=== PATIENT | female | born 1975 | race Two or more races ===

== ENCOUNTER 2022-05-10 16:24 | Outpatient (CLI) | payer SELFPAY ==
[2022-05-10 17:14] LABS: Basophils Absolute Auto 0.05 K/uL (0.00-0.30); Basophils Percent Auto 0.5 % (0.0-3.0); Eosinophils Absolute Auto 0.29 K/uL (0.00-0.50); Eosinophils Percent Auto 3.1 % (0.0-7.0); Hematocrit 41.2 % (33.0-51.0); Hemoglobin* 13.9 gm/dL (12.0-16.0); Immature Granulocytes Abs Auto 0.02 K/uL (0.00-0.30); Immature Granulocytes Pct Auto 0.2 %; Lymphocytes Absolute Auto 3.06 K/uL (0.90-2.90); Mean Corpuscular HGB Conc 34 gm/dL (32-36); Mean Corpuscular Hemoglobin 30 pg (26-34); Mean Corpuscular Volume 89 fL (80-100); Monocytes Percent Auto 7.2 % (0.0-11.0); Neutrophils Absolute Auto 5.19 K/uL (1.7-7.0); Platelet Count* 310 K/uL (140-440); RDW Coefficient of Variation % 12.3 % (11.5-15.5); Red Blood Count 4.65 m/uL (4.00-5.20); White Blood Count* 9.28 K/uL (4.50-11.00)
[2022-05-10 17:15] LABS: Slide Review Reflex No
--- NOTE | 2022-05-10 17:15 | CRLHL7_ITS ---
For Patients: As a result of the Century Cures Act, medical imaging exams and procedure reports are released immediately into your electronic medical record. You may view this report before your referring provider. If you have questions, please contact your health care provider. BILATERAL SCREENING MAMMOGRAM WITH COMPUTER-AIDED DETECTION AND TOMOSYNTHESIS TECHNIQUE: CC and MLO views were obtained. These mammographic images have been obtained using full-field digital technique. These mammographic images were interpreted with the benefit of computer-aided detection. Breast Tomosynthesis was used in this interpretation. COMPARISON FILM: 10/30/18, 11/25/16, 09/24/10. FINDINGS: There are scattered areas of fibroglandular density IMPRESSION: There is no radiographic evidence for malignancy. ASSESSMENT: BI-RADS Category 1: Negative RECOMMENDATION: Routine screening mammogram in 1 year. A lay language report of this examination will be provided to the patient. Chuck Negro M.D. Diagnostic/Nuclear Medicine Radiologist [email or web address] PABLO/Dictated by: Chuck Negro MD @ 05/11/2022 8:49:00 AM (Electronically Signed)
[2022-05-10 17:58] LABS: Free T4 Free Thyroxine* 0.88 ng/dL (0.70-1.85)
== END 2022-05-10 16:25 | disposition home or self-care (01) ==
PROVIDERS: PCP Nurse Practitioner Family; Visit Provider Nurse Practitioner Family
DX: Z12.31 Encounter for screening mammogram for malignant neoplasm of breast (principal)
CPT/HCPCS: 36415; 77063; 77067; 84439; 84443; 85025

== ENCOUNTER 2022-10-28 16:24 | Emergency (ER) | payer SELFPAY ==
[2022-10-28 16:39] VITALS: BP 145/77; PULSE 71; RESP 20; TEMP 36.3; O2SAT 97; BMI 30.8
--- NOTE | 2022-10-28 17:36 | CRLHL7_ITS ---
For Patients: As a result of the Century Cures Act, medical imaging exams and procedure reports are released immediately into your electronic medical record. You may view this report before your referring provider. If you have questions, please contact your health care provider. INDICATION: Right upper quadrant abdomen pain. TECHNIQUE: Ultrasound abdomen limited. Sonographic images of the right upper quadrant were obtained using heart-scale and color Doppler images. COMPARISON: None. FINDINGS: Liver: Normal in size and echotexture. No intrahepatic biliary dilatation. Gallbladder: No stones or sludge. Normal wall thickness. No pericholecystic fluid. Common bile duct: 3 mm. Pancreas: Pancreas is relatively obscured by bowel gas. Right kidney: Normal in size. Normal echotexture and cortex. No shadowing stones, or hydronephrosis. Vasculature: Proximal abdominal aorta and IVC are unremarkable. IMPRESSION: Unremarkable right upper quadrant ultrasound. Dictated by Parrish Mendoza MD @ 10/28/2022 7:21:06 PM (Electronically Signed)
--- NOTE | 2022-10-28 17:38 | ED_ITS ---
HPI - Abdominal Pain General Chief Complaint: Abdominal Pain Stated Complaint: Nausea, vomiting, cold feeling hands Time Seen by Provider: 10/28/22 17:17 History of Present Illness HPI narrative: This 46-year-old female is a [place]-speaking woman who requires use of epilepsy physician. She comes in reporting abdominal pain over the past few weeks but worse over recent few days. She has right upper quadrant and upper abdomen pain. She describes also some nausea and vomiting. Her pain is worsened when taking food. She does not report any fevers. Related Data Home Medications Medication Instructions Recorded Confirmed cetirizine 10 mg tablet 10 mg PO 01/10/22 01/10/22 citalopram 20 mg tablet 20 mg PO 01/10/22 01/10/22 docusate sodium 100 mg capsule ea PO 01/10/22 01/10/22 famotidine 20 mg tablet 20 mg PO 01/10/22 01/10/22 hydroxyzine HCl 25 mg tablet 25 mg PO 01/10/22 01/10/22 diphenhydramine HCl 25 mg capsule 25 mg PO QPM PRN 06/30/22 06/30/22 (Allergy Relief (diphenhydramine)) escitalopram oxalate 10 mg tablet 10 mg PO DAILY 06/30/22 06/30/22 glycerin 0.25 % eye drops (Clear drp ophthalmic (eye) 06/30/22 06/30/22 Eyes Dry Itchy Relief) olopatadine 0.2 % eye drops 1 drp ophthalmic (eye) QAM 06/30/22 06/30/22 (Pataday Once Daily Relief) Previous Rx's Medication Instructions Recorded ketorolac 10 mg tablet 10 mg PO Q8H 5 days #15 tabs 10/28/22 ondansetron HCl 4 mg tablet 4 mg PO Q6H #20 tabs 10/28/22 Allergies Allergy/AdvReac Type Severity Reaction Status Date / Time No Known Drug Allergies Allergy Verified 10/04/22 15:15 Review of Systems Status of ROS Reports: 10 or more systems reviewed and unremarkable except as noted in History and below Narrative Constitutional: No fevers, no weight gain or loss. Eyes: No discharge. No vision changes. HENT: No congestion, no sore throat, no ear pain. Cardiovascular: No chest pain, no palpitations. Respiratory: No shortness of breath, no wheezes, no cough. Gastrointestinal: Right upper quadrant abdominal pain with nausea and some vomiting. No diarrhea. Genitourinary: No dysuria, no hematuria. Musculoskeletal: Normal range of motion. Skin: No rashes, no pruritis. Neurological: No dizziness, weakness, sensory change, speech change. Endo/Heme/Allergies: No bruising or bleeding. No polydipsia. Pysch: no suicidality, no anxiety, no insomnia. All other systems reviewed and are negative. PFSH PFSH Surgical History (System 10/04/22 @ 15:15 by Koki Mcelroy) History of lung surgery ?Z98.890 - Other specified postprocedural states (ICD-10) Family History (System 10/04/22 @ 15:15 by Koki Mcelroy) Sister Breast cancer Family/Other Breast cancer Maternal Grandfather No problems noted. Maternal Grandmother Uterine cancer Social History (System 10/04/22 @ 15:15 by Koki Mcelroy) Narrative: She is employed in [employer] She does not exercise regularly She speaks [place] She does not smoke, drink alcohol, or use recreational drugs She denies any domestic abuse, and reports feeling safe at home, despite situation described in HPI. Smoking Status: Never smoker How often do you have a drink containing alcohol: monthly or less How many standard drinks containing alcohol do you have on a typical day: 1 or 2 AUDIT-C Alcohol total score: 1 Non-prescribed substance use: denies use Exam Narrative: Exam Narrative: Constitutional: Well-developed, well-nourished, no acute distress. HEENT: Normocephalic, atraumatic. Neck: Normal range of motion. Nontender. Supple. Heart: Regular. No murmurs. Normal rate. Intact distal pulses. Lungs: Clear to auscultation. No chest discomfort. No wheezes, rhonchi, or rales. Abdomen: Normal bowel sounds. Tenderness in the right upper quadrant. No rebound tenderness. Genitalia: Deferred. Back: No midline tenderness. Normal range of motion. Extremities: Normal range of motion. No injury. Skin: Intact. No rash. Warm. No erythema or pallor. Neurologic: No altered sensation. No weakness. Alert and oriented. Psychiatric: No suicidality. No anxiety or depression. No insomnia. Nursing notes and vitals signs are reviewed. Const: Vital Signs, click to edit/add: Vital Signs - 24 hr 10/28/22 16:39 Temperature 97.4 F L Pulse Rate [Pulse Oximeter] 71 Respiratory Rate 20 Blood Pressure [Ri ght Upper Arm] 145/77 H Pulse Oximetry 97 Oxygen Delivery Me thod Room Air Course Vital Signs Vital signs: Initial Vital Signs Temperature 97.4 F L 10/28/22 16:39 Temperature Source Temporal Artery Scan 10/28/22 16:39 Pulse Rate 71 10/28/22 16:39 Respiratory Rate 20 10/28/22 16:39 Blood Pressure 145/77 H 10/28/22 16:39 Blood Pressure Mean 99 10/28/22 16:39 Pulse Oximetry 97 10/28/22 16:39 Oxygen Delivery Method Room Air 10/28/22 16:39 Vital Signs Temperature 97.4 F L 10/28/22 16:39 Pulse Rate 71 10/28/22 16:39 Respiratory Rate 20 10/28/22 16:39 Blood Pressure 145/77 H 10/28/22 16:39 Pulse Oximetry 97 10/28/22 16:39 Oxygen Delivery Method Room Air 10/28/22 16:39 Temperature 97.4 F L 10/28/22 16:39 Pulse Rate 71 10/28/22 16:39 Respiratory Rate 20 10/28/22 16:39 Blood Pressure 145/77 H 10/28/22 16:39 Pulse Oximetry 97 10/28/22 16:39 Oxygen Delivery Method Room Air 10/28/22 16:39 MDM - Abdominal Pain MDM Narrative Medical decision making narrative: This patient comes in reporting nausea and upper epigastric and right upper quadrant abdominal pain. She arrives with normal vital signs and her exam is reassuring except for some discomfort in the right upper quadrant. She does not have any rebound tenderness. An ultrasound of the right upper quadrant shows a fatty liver but no sign of gallbladder disease or other abnormalities. She does have extra gas in this area that may be causing some of her pain. Lab results are also acquired and these returned with reassuring findings also. And epilepsy physician is employed to relayed these findings with the patient. She is grateful that there is not anything seriously wrong with her. At the time of discharge the patient appears safe for outpatient management. The treatment plan is reviewed along with written and verbal return precautions. Reasons to return and the importance of close followup were also reviewed. She did received prescription for Zofran and Toradol. Lab Data Labs: Lab Results 10/28/22 10/28/22 Range/Units 17:33 18:01 WBC 10.67 (4.50-11.00) K/uL RBC 4.66 (4.00-5.20) m/uL Hgb 13.6 (12.0-16.0) gm/dL Hct 41.6 (33.0-51.0) % MCV 89 (80-100) fL MCH 29 (26-34) pg MCHC 33 (32-36) gm/dL RDW Coeff of Rahul 12.4 (11.5-15.5) % Plt Count 311 (140-440) K/uL Neut % (Auto) 61.3 (42.0-72.0) % Lymph % (Auto) 28.8 (20-44) % [place] % (Auto) 7.2 (0.0-11.0) % Eos % (Auto) 2.2 (0.0-7.0) % Baso % (Auto) 0.4 (0.0-3.0) % Neut # (Auto) 6.54 (1.7-7.0) K/uL Lymph # (Auto) 3.07 H (0.90-2.90) K/uL [place] # (Auto) 0.80 (0.00-0.90) K/UL Eos # (Auto) 0.24 (0.00-0.50) K/uL Baso # (Auto) 0.04 (0.00-0.30) K/uL Abs Immat Gran (auto) 0.01 (0.00-0.30) K/uL Imm/Tot Granulo (auto) 0.1 % Sodium 134 L (135-149) mmol/L Potassium 4.7 (3.6-5.1) mmol/L Chloride 106 (96-114) mmol/L Carbon Dioxide 21 (20-32) mmol/L BUN 21 (5-24) mg/dL Creatinine 0.6 (0.5-1.5) mg/dL Estimated Creat Clear 94.85 Estimated GFR 111 ml/min Glucose 96 (60-115) mg/dL Calcium 8.3 L (8.4-10.6) mg/dL Total Bilirubin 0.5 (0.1-1.5) mg/dL Direct Bilirubin 0.3 (0.0-0.5) mg/dL AST 35 (12-35) U/L ALT 29 (4-35) U/L Alkaline Phosphatase 114 (40-150) U/L Total Protein 7.6 (6.0-8.3) g/dL Albumin 4.0 (3.3-5.0) g/dL Lipase 59 (23-300) U/L Urine Color Yellow (Yellow) Urine Appearance Clear (Clear) Urine pH 6.0 (5.0-8.5) Ur Specific [place] 1.015 (1.000-1.030) Urine Protein Negative (Negative) Urine Glucose (UA) Negative (Negative) Urine Ketones Negative (Negative) Urine Blood 2+ A (Negative) Urine Nitrite Negative (Negative) Urine Bilirubin Negative (Negative) Urine Urobilinogen 0.2 (0.2-1.0) Ur Leukocyte Esterase Negative (Negative) Urine RBC 0-2 (0-2) Urine WBC 0-2 (0-5) Ur Squamous Epith Cells Few (None-Few) Urine Bacteria None (None) Imaging Data US - abdomen: Radiologist's impression: Unremarkable right upper quadrant ultrasound. Discharge Plan Discharge Clinical Impression: Abdominal pain Patient Disposition: Home, Self-Care Condition: Stable Additional Instructions: Take medication as needed and indicated. Follow up with MD or return if worsening. Prescriptions: New ondansetron HCl 4 mg tablet 4 mg PO Q6H Qty: 20 0RF ketorolac 10 mg tablet 10 mg PO Q8H 5 Days Qty: 15 0RF No Action citalopram 20 mg tablet 20 mg PO Patient Comments: TAKE ONE TABLET BY MOUTH DAILY cetirizine 10 mg tablet 10 mg PO Patient Comments: TAKE ONE TABLET BY MOUTH EVERY DAY hydroxyzine HCl 25 mg tablet 25 mg PO Patient Comments: TAKE 1 TABLET BY MOUTH DAILY NEEDED famotidine 20 mg tablet 20 mg PO Patient Comments: TAKE 1 TABLET BY MOUTH TWO TIMES A DAY NEEDED docusate sodium 100 mg capsule PO Patient Comments: TAKE ONE CAPSULE BY MOUTH EVERY DAY escitalopram oxalate 10 mg tablet 10 mg PO DAILY diphenhydramine HCl [Allergy Relief(diphenhydramin)] 25 mg capsule 25 mg PO QPM PRN olopatadine [Pataday Once Daily Relief] 0.2 % drops 1 drp ophthalmic (eye) QAM Clear Eyes Dry Itchy Relief 0.25 % drops ophthalmic (eye) Follow Up/Referrals: Carmel Matthew NP [Primary Care Provider] - Stand Alone Forms: [employer] Info Instructions
[2022-10-28 17:44] LABS: Basophils Absolute Auto 0.04 K/uL (0.00-0.30); Basophils Percent Auto 0.4 % (0.0-3.0); Eosinophils Absolute Auto 0.24 K/uL (0.00-0.50); Eosinophils Percent Auto 2.2 % (0.0-7.0); Hematocrit 41.6 % (33.0-51.0); Hemoglobin* 13.6 gm/dL (12.0-16.0); Immature Granulocytes Abs Auto 0.01 K/uL (0.00-0.30); Immature Granulocytes Pct Auto 0.1 %; Lymphocytes Absolute Auto 3.07 K/uL (0.90-2.90); Lymphocytes Percent Auto 28.8 % (20-44); Mean Corpuscular HGB Conc 33 gm/dL (32-36); Mean Corpuscular Hemoglobin 29 pg (26-34); Mean Corpuscular Volume 89 fL (80-100); Monocytes Percent Auto 7.2 % (0.0-11.0); Neutrophils Absolute Auto 6.54 K/uL (1.7-7.0); Neutrophils Percent Auto 61.3 % (42.0-72.0); Platelet Count* 311 K/uL (140-440); RDW Coefficient of Variation % 12.4 % (11.5-15.5); Red Blood Count 4.66 m/uL (4.00-5.20); White Blood Count* 10.67 K/uL (4.50-11.00)
[2022-10-28 17:46] LABS: Slide Review Reflex No
[2022-10-28 17:59] LABS: Chloride* 106 mmol/L (96-114); Sodium* 134 mmol/L (135-149)
[2022-10-28 18:01] LABS: Alkaline Phosphatase* 114 U/L (40-150); Aspartate Amino Transferase* 35 U/L (12-35); Bilirubin Direct* 0.3 mg/dL (0.0-0.5); Bilirubin Total* 0.5 mg/dL (0.1-1.5); Lipase* 59 U/L (23-300); Total Protein* 7.6 g/dL (6.0-8.3)
[2022-10-28 18:02] LABS: Alanine Aminotransferase* 29 U/L (4-35); Blood Urea Nitrogen* 21 mg/dL (5-24); Carbon Dioxide* 21 mmol/L (20-32); Creatinine* 0.6 mg/dL (0.5-1.5); Est. Creatinine Clearance* 94.85; Estimated Glomerular Filt Rate 111 ml/min
[2022-10-28 18:03] LABS: Calcium* 8.3 mg/dL (8.4-10.6); Glucose* 96 mg/dL (60-115)
[2022-10-28 18:05] LABS: Potassium* 4.7 mmol/L (3.6-5.1)
[2022-10-28 18:21] LABS: Appearance Urine Clear (Clear); Bilirubin Urine Negative (Negative); Blood Urine 2+ (Negative); Color Urine Yellow (Yellow); Glucose Urine Negative (Negative); Ketones Urine Negative (Negative); Leukocyte Esterase Urine Negative (Negative); Nitrite Urine Negative (Negative); Protein Urine Negative (Negative); Specific Gravity Urine 1.015 (1.000-1.030); Urobilinogen Urine 0.2 (0.2-1.0)
[2022-10-28 18:28] LABS: RBC Urine 0-2 (0-2); Squamous Epithelial Cell Urine Few (None-Few); WBC Urine 0-2 (0-5)
== END 2022-10-28 19:52 | disposition home or self-care (01) ==
PROVIDERS: Emergency Provider Emergency Medicine Emergency Medical Services; PCP Nurse Practitioner Family
DX: R10.9 Unspecified abdominal pain (principal)
CPT/HCPCS: 36415; 76705; 80048; 80076; 81001; 83690; 85025; 96374; 96375; 99284; M0243

== ENCOUNTER 2023-06-05 10:08 | Outpatient (CLI) | payer OTHER, SELFPAY ==
[2023-06-05 15:32] LABS: Chlamydia DNA Amplified* NOT DETECTED (No Detected); GC DNA Amplified* NOT DETECTED (No Detected)
== END 2023-06-05 10:09 | disposition home or self-care (01) ==
LOC: NFLDREF 10:09
PROVIDERS: PCP Nurse Practitioner Family; Visit Provider Obstetrics & Gynecology
DX: Z01.419 Encounter for gynecological examination (general) (routine) without abnormal findings (principal); Z11.3 Encounter for screening for infections with a predominantly sexual mode of transmission
CPT/HCPCS: 87491; 87591; T1013

== ENCOUNTER 2024-02-13 17:00 | Outpatient (CLI) | payer OTHER, SELFPAY ==
--- NOTE | 2024-02-13 17:00 | CRLHL7_ITS ---
For Patients: As a result of the Century Cures Act, medical imaging exams and procedure reports are released immediately into your electronic medical record. You may view this report before your referring provider. If you have questions, please contact your health care provider. BILATERAL SCREENING MAMMOGRAM WITH COMPUTER-AIDED DETECTION AND TOMOSYNTHESIS TECHNIQUE: CC and MLO views were obtained. These mammographic images have been obtained using full-field digital technique. These mammographic images were interpreted with the benefit of computer-aided detection. Breast Tomosynthesis was used in this interpretation. COMPARISON FILM: 05/10/22, 10/30/18, 11/25/16. FINDINGS: There are scattered areas of fibroglandular density. IMPRESSION: There is no radiographic evidence for malignancy. ASSESSMENT: BI-RADS Category 2: Benign RECOMMENDATION: Routine screening mammogram in 1 year. A lay language report of this examination will be provided to the patient. Parrish Small M.D. Diagnostic Radiologist [email or web address] SP/Dictated by: Parrish Small MD @ 02/14/2024 12:24:00 PM (Electronically Signed)
--- OUTSIDE RECORDS SUMMARY | 2024-02-13 17:03 | XMS_ITS | Clinical Summary ---
Author Organization [employer] [facility] Address [place], [place] [address] Care Team Providers Care Cloth Measurer Name Role Phone Pcp, No Primary Care Provider Unavailabl e Allergies Active Allergy Reactions Criticality Noted Date Comments Dust Mites 03/16/2009 Hydrocodone Itching,Dizziness 05/25/2007 Sertraline Tremors 04/23/2008 Medications No known medications Active Problems Problem Noted Date Diagnosed Date Acid reflux 09/24/2010 Major depressive disorder, single episode, unspe cified 10/13/2008 Lumbago 05/25/2007 Bulimia nervosa 05/29/2006 Unspecified symptom associated with female genit al organs 05/29/2006 Other specified pulmonary tu berculosis, 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 She was treated for 9 months probably with inh. She was exposed to this. Resolved Problems Problem Noted Date Diagnosed Date Resolved Date Heartburn 04/08/2008 09/24/2010 Immunizations Name Administration Dates Next Due Influenza A (H1N1), Inactivated (Age >=3 Years) 03/16/2009 Influenza, IIV3 (Age >=3 years) 03/16/2009,02/12 Tdap 09/24/2010 Family History Medical History Relation Name Comments Heart Disease Father after he art stopped 34 years old Cancer-breast Maternal Aunt 2 age 50 at d iagnosis Cancer-breast Paternal Grandmother Cancer-breast Sister 2 age 39 at diag nosis Relation Name Status Comments Father Maternal Aunt 1 Maternal Aunt 2 Paternal Grandmother Sister 1 Sister 2 Social History Tobacco Use Types Packs/Day Years Used Date Smoking Tobacco: Never Smokeless Tobacco: Never Tobacco Cessation:Counseling Given: Yes Alcohol Use Standard Drinks/Week Comments No 0 (1 standard drink = 0.6 oz pur e alcohol) Sex and Gender Information Value Date Recorded Sex Assigned at Not on file Gender Identity Not on file Sexual Orientation Not on file Obstetrics History Para Term AB IAB SAB Ectopic Multiple Livin g Live Births 2 2 1 1 Date Outcome GA Total Labor Labor/2nd/3rd Weight Sex Type Anes PTL Diamante A1 A5 Name Clin Para Last Filed Vital Signs Vital Sign Reading Time Taken Comments Blood Pressure 110/70 06/02/2014 4:42 PM CDT Pulse 60 2013 5:43 PM CDT Temperature 36.9 C (98.4 F) 10/25/2013 6:32 PM CDT Respiratory Rate - - Oxygen Saturation 100% 10/25/2013 6:32 PM CDT Inhaled Oxygen Concentration - - Weight 74.7 kg (164 lb 9.6 oz) 06/02/2014 4:42 P M CDT Height 152.4 cm (5') 10/25/2013 6:32 PM CDT Body Mass Index 32.15 10/25/2013 6:32 PM CDT Plan of Treatment Health Maintenance Due Date Last Done Comments Depression screening for age 12+ 1985 HIV for age 15-65 1988 BMI (ht and wt on same day) for age 18+ 12/20/1991 Hepatitis C screening for age 18-79 12/20/1991 Colonoscopy through age 75 2018 Mammogram for age 45-75 10/31/2019 10/31/19, 09/24/2010, 03/24/2008, Additional history exists Tetanus booster 09/24/2020 09/24/2010, 09/24/2010 COVID-19 vaccine series ( season) 2023 Influenza for age 50-64 12/20/2023 03/16/19 10, 03/16/2009, 02/13/2008 Zoster (shingles) series for age 50+ (1 of 2) 12/20/2023 Lipids for age 45-75 11/11/2025 11/11/2020, 11/11/2019, 09/24/2010 Pap test for age 21-65 06/04/2026 4, 06/05/2023, 09/20/2021, Additional history exists Tdap Completed 09/24/2010 Pneumococcal series for age 6-64 Aged Out No longer eligible based on patient's age to complete this topic Procedures Procedure Name Priority Date/Time Associated Diagnosis Comments PORTABLE TRACK LINE MARKER THIN PREP PAP SCREEN IMAGED Routine 06/05/2023 9:45 AM CDT LIPID PANEL Routine 11/11/2020 9:55 AM CDT SCAN-MAMMOGRAPHY REPORT 10/30/2018 12:00 AM CDT from Last 3 Months or Most Recently Relevant to Health Maintenance Results * PORTABLE TRACK LINE MARKER THIN PREP PAP SCREEN IMAGED (06/05/2023 9:45 AM CDT) Case Report Gynecologic Cytology Report Case: [id number] Authorizing Provider: Nirmala Dong MD Collected: 06/05/2023 0945 Ordering Location: [facility] Received: 06/06/2023 0822 First Screen: Consuelo Parks Specimen: PORTABLE TRACK LINE MARKER ThinPrep Vial Screening, Cervical 06/12/2023 1:59 PM CDT [facility] INTERPRETATION/ RESULT NEGATIVE FOR INTRAEPITHELIAL LESION OR MALIGNANCY (NIL) (none) 06/12/2023 1:59 PM CDT [facility] IMEN ADEQUACY Satisfactory for evaluation Endocervical component present 06/12/2023 1:59 PM CDT [facility] HPV REQUEST HPV and PAP 06/12/2023 1:59 PM CDT [facility] Date of LMP 05/29/2023 06/12/2023 1:59 PM CDT [facility] Last Pap Date 09/02/2021 06/12/2023 1:59 PM CDT [facility] Last Pap Result NIL 1:59 PM CDT [facility] Abnormal Pap or [place] Bx in last 5 years No 06/12/2023 1:59 PM CDT [facility] Menstrual Status Regular Periods 06/12/2023 1:59 PM CDT [facility] [place] Bx Done Today No 06/12/2023 1:59 PM CDT [facility] Additional Information 06/12/2023 1:59 PM CDT [facility] Comment: Interpreted at [facility] - [address], [place] [address] Automated Review Successful 06/12/2023 1:59 PM CDT [facility] Comment:Specimen processed s uccessfully by automated multi operation machine operator device, [employer] Imaging System, [employer] ANCILLARY TESTING PORTABLE TRACK LINE MARKER HPV Ordered, Please see separate report 06/12/2023 1:59 PM CDT [facility] Note The pap test is a screening technique, not a diagnostic procedure. It is used primarily to screen for squamous cancers and precursor lesions. Published studies have shown that it is subject to both false negative and false positive results. The pap test should not be used as the sole means to diagnose or exclude pre-malignant and malignant lesions. 06/12/2023 1:59 PM CDT [facility] Other (Cervical) 06/05/2023 9:45 AM CDT 06/06/2023 8:22 AM CDT Nirmala Dong MD PATHOLOGY/CYTOLO GY [facility] [address] [place] [address], * LIPID PANEL (11/11/2020 9:55 AM CDT) CHOLESTEROL,TOTAL 180 100 - 199 mg/dL 11/12/2020 10:49 AM CDT [facility] TRIGLYCERIDES 117 <150 mg/dL 11/12/2020 10:49 AM CDT [facility] HDL CHOLESTEROL 54 >40 mg/dL 10:49 AM CDT [facility] NON-HDL CHOLESTEROL 126 <145 mg/dl 11/12/2020 10:49 AM CDT [facility] CHOL/HDL RATIO 3.33 <4.50 11/12/2020 10:49 AM CDT [facility] LDL CHOLESTEROL 103 <=130 mg/dL 11/12/2020 10:49 AM CDT [facility] VLDL CHOLESTEROL 23 mg/dL 11/13/19 10:49 AM CDT [facility] PROVIDER ORDERED STATUS RANDOM 11/12/2020 10:49 AM CDT [facility] Blood BLOOD SPECIMEN / Unknown 11/11/2020 9:55 AM CDT 11/12/2020 10:01 AM CDT Nadia Vaughan NP CHEMISTRY [facility] [address] [place] [address] * SCAN-MAMMOGRAPHY REPORT (10/30/2018 12:00 AM CDT) Anatomical Region Laterality Modality Other Scanner OTHER from Last 3 Months or Most Recently Relevant to Health Maintenance Care Teams Cloth Measurer Relationship Specialty Start Date End Date Pcp, No . PCP - General 11/10/14
== END 2024-02-13 17:01 | disposition home or self-care (01) ==
PROVIDERS: PCP Nurse Practitioner Family; Visit Provider Registered Nurse
DX: Z12.31 Encounter for screening mammogram for malignant neoplasm of breast (principal)
CPT/HCPCS: 77063; 77067; T1013